=== PATIENT | female | born 1985 | race American Indian/Alaskan Native ===

== ENCOUNTER 2017-05-06 10:50 | Inpatient (IN) | payer OTHER ==
[~2017-05-06] VITALS: Ht 167.6 cm; Wt 66.2 kg
[2017-05-18] MEDS ORDERED: PRENATAL TABLE1 EAC1 PO (06:00)
== END 2017-05-20 11:17 | DRG 775 ==
LOC: LDR 05-18 05:19 → OB/GYN 05-18 20:08
PROC: 10E0XZZ Delivery of Products of Conception, External Approach (ICD-10-PCS; principal; 2017-05-18)
PROC: 10907ZC Drainage of Amniotic Fluid, Therapeutic from Products of Conception, Via Natural or Artificial Opening (ICD-10-PCS; 2017-05-18)
PROC: 4A1HXCZ Monitoring of Products of Conception, Cardiac Rate, External Approach (ICD-10-PCS; 2017-05-18)
PROC: 4A033R1 Measurement of Arterial Saturation, Peripheral, Percutaneous Approach (ICD-10-PCS; 2017-05-18)
DX: O80 Encounter for full-term uncomplicated delivery (principal); Z37.0 Single live birth; Z3A.37 37 weeks gestation of pregnancy

== ENCOUNTER 2020-06-04 06:10 | Inpatient (IN) | payer OTHER ==
[~2020-06-04 06:10] MED LIST: IMITREX PO; PRENATAL TABLE1 EAC1 PO
== END 2020-06-05 12:00 | disposition home or self-care (01) | DRG 743 ==
LOC: CIR.AMB 06:10 → OB/GYN 15:56 → O/R 15:56 → OB/GYN 17:25
PROVIDERS: ADMIT Obstetrics & Gynecology Maternal & Fetal Medicine; ATTEND Obstetrics & Gynecology Maternal & Fetal Medicine
PROC: 0UJ84ZZ Inspection of Fallopian Tube, Percutaneous Endoscopic Approach (ICD-10-PCS; principal; 2020-06-05)
PROC: 0UB70ZZ Excision of Bilateral Fallopian Tubes, Open Approach (ICD-10-PCS; 2020-06-05)
PROC: 0UQ90ZZ Repair Uterus, Open Approach (ICD-10-PCS; 2020-06-05)
DX: Z30.2 Encounter for sterilization (principal)